=== PATIENT | male | born 1945 | race Caucasian/White ===

== ENCOUNTER 2022-04-22 13:42 | Inpatient (IN) ==
--- NOTE | 2022-04-22 14:06 | Emergency Department Note ---
Impression & Plan Blood bacterial culture positive, Influenza A ED Provider Note NAME: SUE HIDALGO AGE: 76 SEX: M : 1945 ARRIVES VIA: Walk-In INFORMANT: Patient, ED PROVIDER(S): Carlo Last MD Chief Complaint: Referral back to the emergency department for positive blood culture HPI: Patient presents due to concern for recent positive blood cultures for gram-negative rods. The patient was seen on Monday and diagnosed with the flu. Patient has taken 2 doses of Tamiflu. The patient denies any chest pains or shortness of breath but does have associated weakness. Patient did not receive his seasonal flu shot this year. Patient denies any abdominal pain nausea or vomiting. Patient denies any urinary symptoms. Patient has had an occasionally productive cough. Former smoker low smoking 35 years ago. Patient has not had any fevers or chills. ROS: See HPI for pertinent positives and negatives. A total of 10 systems were reviewed and otherwise negative. Past medical history: See below Surgical history: See below Social history: See below Physical Exam: GENERAL: NAD, wearing a mask, non-toxic. Wearing glasses. EYE EXAM: Normal conjunctiva. PERRL, no anisocoria and EOM's grossly intact w/o pain. NECK: Supple, no nuchal rigidity, no adenopathy, non-tender. No signs of meningismus. FROM of the neck with good chin to chest and neck extension. No stridor. LUNGS: Sonorous breath sounds right chest. Normal chest wall mechanics. HEART: NSR, no MRG. ABDOMEN: Abdomen soft, non-tender, normo-active bowel sounds, no masses, no rebound or guarding. BACK: No CVA TTP. SKIN: No rashes and no bruising. UPPER EXTREMITIES: Upper extremities are grossly normal. LOWER EXTREMITIES: Grossly normal, no edema. NEURO EXAM: A&O x3, cranial nerves II-XII grossly intact, normal speech, moves all 4 extremities. Differential diagnoses: Infection, dehydration, metabolic abnormality, hypo/hyperglycemia, electrolyte disturbance, anemia, hypoxia, cardiac sources, intracerebral event, toxicologic, neurologic, as well as other pathologies. Course: Patient was seen and evaluated the bedside. Full history physical exam was performed. EKG interpreted by nv Sinus, rate 63, normal intervals left axis deviation no ST elevations. Imaging Studies: See Below Cardiac monitoring: An order was placed for continuous cardiac monitoring. The monitor shows a rate of 67 with sinus rhythm. MDM: Patient was seen due to concern for weakness with recent positive blood cultures. Blood work is obtained along with repeat cultures and a lactate IV fluids were ordered along with a COVID test and the patient was ordered empiric cefepime. Patient does have leukopenia with a normal H&H and platelet count. Kidney function is unremarkable with normal electrolytes. Urinalysis is negative. COVID-negative. I did speak the on-call hospitalist Re Laura PA-C and the patient was admitted by Dr. Meza. Past Med/Surg History Medical History BPH (benign prostatic hyperplasia) Diabetes mellitus, type II Dyslipidemia Hypertension Urinary retention Surgical History History of arthroplasty of left knee History of colonoscopy History of cystoscopy Family History Father Cancer brain tumor Brother Cancer liver cancer Social History Smoking Status: Never smoker Hx Alcohol Use: No Hx Substance Use: No Preferred Language: [place] Island[place] Current Living Situation: Family Feels Safe at Home: Yes Allergies Allergies Allergy/AdvReac Type Severity Reaction Status Date / Time No Known Allergies Allergy Verified 04/20/22 21:20 Home Meds Home Medications Medication Instructions Recorded Confirmed finasteride 5 mg tablet 5 mg PO DAILY 04/20/22 04/22/22 levothyroxine 75 mcg tablet 75 mcg PO QAM 04/20/22 04/22/22 lisinopril 5 mg tablet 5 mg PO DAILY 04/20/22 04/22/22 metoprolol succinate 50 mg 50 mg PO DAILY 04/20/22 04/22/22 tablet,extended release 24 hr rosuvastatin 10 mg tablet 10 mg PO DAILY 04/20/22 04/22/22 tamsulosin 0.4 mg capsule 0.8 mg PO DAILY 04/20/22 04/22/22 acetaminophen 500 mg tablet 1,000 mg PO Q6H PRN Fever Or Pain 04/22/22 04/22/22 (Tylenol Extra Strength) ascorbic acid (vitamin C) 1,000 mg 1 g PO DAILY 04/22/22 04/22/22 tablet (Vitamin C) aspirin 81 mg tablet,delayed 81 mg PO HS 04/22/22 04/22/22 release Previous Rx's Medication Instructions Recorded oseltamivir 75 mg capsule (Tamiflu) 75 mg PO BID 5 days #10 caps 04/20/22 Results & Data (ED) Vital Signs Vital Signs - 24 hr 04/22/22 13:46 Temperature 36.6 C Temperature Source Oral Pulse Rate 64 Respiratory Rate 19 Blood Pressure 183/80 H Blood Pressure Mean 114 Pulse Oximetry 97 Oxygen Delivery Method Room Air Sepsis Recent Fever Within 48 Hours No Sepsis New/Unexplained Change in Mental Status N/A Sepsis Action Taken by Nursing No Action Required Home Medications Current Medication List: was personally reviewed by me Laboratory Data Attestation: I reviewed the patient's lab results. Result diagrams: 04/22/22 15:11 04/22/22 15:11 Lab Results 04/22/22 04/22/22 04/22/22 Range/Units 15:11 15:11 15:11 WBC 4.05 L (4.8-10.8) K/ul RBC 4.86 (4.63-6.08) M/uL Hgb 15.3 (14.0-18.0) g/dl Hct 46.3 (40.1-51.0) % MCV 95.3 (80.0-100.0) fL MCH 31.5 (25.0-34.0) pg MCHC 33.0 (32.0-36.0) g/dL RDW Std Deviation 47.4 H (36.4-46.3) fL RDW Coeff of Daniel 13.4 (11.5-14.5) % Plt Count 157 (130-400) K/uL MPV 10.9 (9.4-12.4) fL Immature Gran % (Auto) 0.5 % Neut % (Auto) 52.4 % Lymph % (Auto) 33.3 % Gila % (Auto) 10.1 % Eos % (Auto) 3.0 % Baso % (Auto) 0.7 % Neut # (Auto) 2.12 (1.4-6.5) K/uL Lymph # (Auto) 1.35 (1.2-3.4) K/uL Gila # (Auto) 0.41 (0.24-0.82) K/uL Eos # (Auto) 0.12 (0-0.50) K/uL Baso # (Auto) 0.03 (0-0.2) K/uL Immature Gran # (Auto) 0.02 (0.00-0.02) K/uL Sodium 137 (136-145) mmol/L Potassium 4.1 (3.5-5.1) mmol/L Chloride 103 (98-107) mmol/L Carbon Dioxide 27 (21-32) mmol/L Anion Gap 7 (3-11) BUN 17 (6-23) mg/dl Creatinine 0.90 (0.6-1.4) mg/dl Est Cr Clr Drug Dosing 79.1 ml/min Est GFR ( Amer) 94.5 ml/min Est GFR (Non-Af Amer) 81.5 ml/min BUN/Creatinine Ratio 18.9 (10-20) Glucose 95 (70-99(Fasting)) mg/dl Lactate 0.8 (0.4-2.0) mmol/L Calcium 9.5 (8.5-10.1) mg/dl Magnesium 2.2 (1.7-2.4) mg/dl Total Bilirubin 0.5 (0.2-1.0) mg/dl Direct Bilirubin 0.1 (0-0.2) mg/dl AST 26 (13-39) U/L ALT 17 (7-52) U/L Alkaline Phosphatase 44 (34-104) U/L Troponin I High Sens 11.2 (0-20) pg/ml Total Protein 7.4 (6.0-8.3) gm/dl Albumin 4.3 (3.4-5.0) gm/dl Procalcitonin (0-0.5) ng/ml 04/22/22 Range/Units 15:11 WBC (4.8-10.8) K/ul RBC (4.63-6.08) M/uL Hgb (14.0-18.0) g/dl Hct (40.1-51.0) % MCV (80.0-100.0) fL MCH (25.0-34.0) pg MCHC (32.0-36.0) g/dL RDW Std Deviation (36.4-46.3) fL RDW Coeff of Daniel (11.5-14.5) % Plt Count (130-400) K/uL MPV (9.4-12.4) fL Immature Gran % (Auto) % Neut % (Auto) % Lymph % (Auto) % Gila % (Auto) % Eos % (Auto) % Baso % (Auto) % Neut # (Auto) (1.4-6.5) K/uL Lymph # (Auto) (1.2-3.4) K/uL Gila # (Auto) (0.24-0.82) K/uL Eos # (Auto) (0-0.50) K/uL Baso # (Auto) (0-0.2) K/uL Immature Gran # (Auto) (0.00-0.02) K/uL Sodium (136-145) mmol/L Potassium (3.5-5.1) mmol/L Chloride (98-107) mmol/L Carbon Dioxide (21-32) mmol/L Anion Gap (3-11) BUN (6-23) mg/dl Creatinine (0.6-1.4) mg/dl Est Cr Clr Drug Dosing ml/min Est GFR ( Amer) ml/min Est GFR (Non-Af Amer) ml/min BUN/Creatinine Ratio (10-20) Glucose (70-99(Fasting)) mg/dl Lactate (0.4-2.0) mmol/L Calcium (8.5-10.1) mg/dl Magnesium (1.7-2.4) mg/dl Total Bilirubin (0.2-1.0) mg/dl Direct Bilirubin (0-0.2) mg/dl AST (13-39) U/L ALT (7-52) U/L Alkaline Phosphatase (34-104) U/L Troponin I High Sens (0-20) pg/ml Total Protein (6.0-8.3) gm/dl Albumin (3.4-5.0) gm/dl Procalcitonin < 0.05 (0-0.5) ng/ml Administered Medications Discontinued Medications Sodium Chloride (Nss 1000ml) 1,000 mls @ 999 mls/hr IV .[id number] LOGAN Stop: 04/22/22 15:30 Last Infusion: 04/22/22 16:27 Dose: 0 mls/hr Documented By: Admin: 04/22/22 15:24 Dose: 999 mls/hr Documented By: RODNEY Cefepime HCl (Maxipime) 2,000 mg in 20 mls @ 5 mls/min IV NOW STA; Protocol Stop: 04/22/22 14:26 Last Admin: 04/22/22 15:23 Dose: 5 mls/min Documented By: RODNEY Lisinopril (Lisinopril 5 Mg Tab) 5 mg PO NOW ONE Stop: 04/22/22 15:50 Last Admin: 04/22/22 16:19 Dose: 5 mg Documented By: RODNEY Imaging Data Radiologist's Impression: Chest X-Ray 04/22/22 14:23 XR chest 1V portable CLINICAL HISTORY: Sepsis TECHNIQUE: Single frontal radiograph of the chest was obtained. Comparison: Comparison is made to chest radiograph 04/20/2022 FINDINGS: No lines and tubes are seen. The cardiomediastinal silhouette is normal. The lungs are clear. No evidence of pleural effusion or pneumothorax. IMPRESSION: No acute chest disease. ACT 112: Negative or not required by law. Electronically signed by: Reece Mistry M.D. 04/22/2022 2:42 PM Discharge Plan Visit Data Chief Complaint: Abnormal Labs/Diagnostic Testing Stated Complaint: CALLED BY ER DEPT TO COME BACK IN ED Provider: Carlo Last Discharge Problem: Blood bacterial culture positive, Influenza A Patient Disposition: Admitted As Inpatient Discharge Instructions Interventions: ED Discharge Assessment Last Done: 04/22/22 17:20
[2022-04-22] MEDS ORDERED: CEFEPIME 2,000 MG/20 ML VIAL IV STA (14:23)
[2022-04-22] MEDS ORDERED: SODIUM CHLORIDE 0.9% 1000ML 1,000 ML IV SCH (14:30)
--- NOTE | 2022-04-22 14:43 | XRay Report ---
XR chest 1V portable CLINICAL HISTORY: Sepsis TECHNIQUE: Single frontal radiograph of the chest was obtained. Comparison: Comparison is made to chest radiograph 04/20/2022 FINDINGS: No lines and tubes are seen. The cardiomediastinal silhouette is normal. The lungs are clear. No evid ence of pleural effusion or pneumothorax. IMPRESSION: No acute chest disease. ACT 112: Negative or not required by law. Electronically signed by: Reece Mistry M.D. 04/22/2022 2:42 PM
--- NOTE | 2022-04-22 15:09 | History & Physical Report ---
Date of Service April 22, 2022 Assessment & Plan (1) Bacteremia: Plan: Patient is 76-year-old male with PMH diet controlled DM II, HTN, dyslipidemia, BPH, urinary retention, hypothyroidism presented to ER for abnormal labs: Positive blood cultures. Patient was seen on 04/20/22 [facility] for fever, chills, weakness, had positive influenza A PCR. Returns to ER today as 1/4 blood cultures positive for gram-negative bacilli. Denies fever today. 04/05/2022 had outpatient cystoscopy. Today afebrile in ER, hypertensive, otherwise vital stable. WBC: 4. Normal lactate CXR: No acute findings UA pending In ER given IVF, cefepime Repeat blood cultures pending Continue cefepime CBC, BMP in a.m. (2) Influenza A: Plan: Positive influenza A PCR on 04/20/2022 Has had 2 doses of Tamiflu Continue Tamiflu Droplet precautions (3) Hypertension: Plan: Continue lisinopril, metoprolol succinate (4) Diabetes mellitus, type II: Plan: Diet controlled A1c: 5.9 on 01/05/2022 Patient takes homeopathic supplement Novolog sliding correction scale per protocol (5) BPH (benign prostatic hyperplasia): Plan: Continue tamsulosin, finasteride (6) Dyslipidemia: Plan: Continue rosuvastatin DVT Prophylaxis Lovenox SQ DNR/DNI as per discussion with pt Follows with Dr Mora in [place] for routine care Pt was seen and care coordinated with Dr Meza. See addendum History of Present Illness Chief Complaint: abnormal labs Primary Care Provider: Sachin Junior DO Patient is 76-year-old male with PMH diet controlled DM II, HTN, dyslipidemia, BPH, urinary retention, hypothyroidism presented to ER for abnormal labs: Positive blood cultures. Patient was seen on 04/20/22 [facility] for fever, chills, weakness, had positive influenza A PCR. Was given IVF, cefepime, Tamif audra and discharged home. Returns to ER today as 1/4 blood cultures positive for gram-negative bacilli. Patient states had fever 2 days ago, none since. Mild cough productive clear sputum. Denies chest pain or SOB. Took 2nd dose of Tamiflu today as pharmacy was closed yesterday and he was unable to fill the prescription. Outpatient cystoscopy on 04/05/22 and was given Bactrim perioperatively. Patient denies dysuria, urinary frequency, hematuria, urinary retention. Denies diaphoresis, N/V/D/C, HOFFMAN, dizziness, syncope, vision changes, neck pain, palpitations, sore throat, choking, otalgia, rhinorrhea, abdominal pain, paresthesias, extremity weakness, extremity edema, rashes. Allergies Allergy/AdvReac Type Severity Reaction Status Date / Time No Known Allergies Allergy Verified 04/20/22 21:20 Home Medications Medication Instructions Recorded Confirmed Type finasteride 5 mg tablet 5 mg PO DAILY 04/20/22 04/22/22 History levothyroxine 75 mcg tablet 75 mcg PO QAM 04/20/22 04/22/22 History lisinopril 5 mg tablet 5 mg PO DAILY 04/20/22 04/22/22 History metoprolol succinate 50 mg 50 mg PO DAILY 04/20/22 04/22/22 History tablet,extended release 24 hr oseltamivir 75 mg capsule (Tamiflu) 75 mg PO BID 5 days #10 caps 04/20/22 04/22/22 Rx rosuvastatin 10 mg tablet 10 mg PO DAILY 04/20/22 04/22/22 History tamsulosin 0.4 mg capsule 0.8 mg PO DAILY 04/20/22 04/22/22 History acetaminophen 500 mg tablet 1,000 mg PO Q6H PRN Fever Or Pain 04/22/22 04/22/22 History (Tylenol Extra Strength) ascorbic acid (vitamin C) 1,000 mg 1 g PO DAILY 04/22/22 04/22/22 History tablet (Vitamin C) aspirin 81 mg tablet,delayed 81 mg PO HS 04/22/22 04/22/22 History release Past Med/Surg History Medical History BPH (benign prostatic hyperplasia) Diabetes mellitus, type II Dyslipidemia Hypertension Urinary retention Surgical History History of arthroplasty of left knee History of colonoscopy History of cystoscopy Family History Father Cancer brain tumor Brother Cancer liver cancer Social History (Reviewed 11/25/22 @ 15:55 by DIANE Gaines Smoking Status: Never smoker Hx Alcohol Use: No Hx Substance Use: No Preferred Language: [place] Citizen Current Living Situation: Family Feels Safe at Home: Yes Review of Systems Review of Systems: All systems reviewed & are unremarkable except as noted in HPI & below Physical Exam Physical Exam: General: no distress, obese Head: normocephalic, atraumatic Eyes: conjunctiva non-injected, anicteric ENT: normal inspection external ears, nose, mucous membranes moist Neck: supple, trachea midline Lungs: clear, no respiratory distress, no wheezing/rhonchi/rales CV: RRR, no murmur, trace pretibial edema Abd: normal BS, soft, non-tender Ext: no cyanosis, no calf tenderness Neuro: A&O x 3, no focal deficits noted, normal affect Skin: warm, dry Results & Data Results & Data ([facility]) Vital Signs (Past 12 Hours) Vital Signs Temp Pulse Resp BP Pulse Ox O2 Del Method 04/22/22 13:46 36.6 C 64 19 183/80 H 97 Room Air Laboratory Results Short CBC 04/22/22 Range/Units 15:11 WBC 4.05 L (4.8-10.8) K/ul Hgb 15.3 (14.0-18.0) g/dl Hct 46.3 (40.1-51.0) % Plt Count 157 (130-400) K/uL BMP 04/22/22 15:11 Sodium 137 Potassium 4.1 Chloride 103 Carbon Dioxide 27 BUN 17 Creatinine 0.90 Glucose 95 Calcium 9.5 Liver Function 04/22/22 Range/Units 15:11 Total Bilirubin 0.5 (0.2-1.0) mg/dl Direct Bilirubin 0.1 (0-0.2) mg/dl AST 26 (13-39) U/L ALT 17 (7-52) U/L Alkaline Phosphatase 44 (34-104) U/L Albumin 4.3 (3.4-5.0) gm/dl Diagnostic Findings Chest X-Ray 04/22/22 14:23 XR chest 1V portable CLINICAL HISTORY: Sepsis TECHNIQUE: Single frontal radiograph of the chest was obtained. Comparison: Comparison is made to chest radiograph 04/20/2022 FINDINGS: No lines and tubes are seen. The cardiomediastinal silhouette is normal. The lungs are clear. No evidence of pleural effusion or pneumothorax. IMPRESSION: No acute chest disease. ACT 112: Negative or not required by law. Electronically signed by: Reece Mistry M.D. 04/22/2022 2:42 PM Supervising Physician Co-Signing Physician Notes 76 yo M w/ PMH of diet controlled DM II, HTN, HLD, Urinary retention, hypothyroidism presented to ED 04/20 w/ flu when tamiflu was started and blood culture was drawn which came back positive for GNB and hence patient was called to the ED 04/22. Pt wo complains of fever, chills, acute changes in bowel or bladder habits. Pt reports having fever on 04/20, also reports some cough w/ clear sputum. No heart valve issues, has knee replacement x Lt. Of note, patient reports having cystoscopy 3 weeks ago. Pt given cefepime in the ED, will continue w/ 2g q12h, bl Cx today. Pt not in sepsis. Labs and imagings reviewed. Will continue w/ OP tamiflu course for flu positive on 04/20. Isolation. GENERAL: Alert and oriented x3. NAD, on RA. Class II obese. HEENT: No pallor, no icterus. Pupils equal, round and reactive to light. Oral mucosa moist. NECK: No JVD, no neck masses. HEART: S1 and S2 heard. Regular rate and rhythm. No murmur, no gallop. RESPIRATORY SYSTEM: Normal AP diameter. No accessory muscle use. No wheezing, no crackles. ABDOMEN: Soft, bowel sounds present, nontender, no distention. CENTRAL NERVOUS SYSTEM: No facial droop. Speech is clear. Obeys simple commands. Moves extremities. EXTREMITIES: trace ble edema, no erythema seen. I have seen and examined the patient and have discussed the case with the provider above. I agree with the assessment and plan as stated.
[2022-04-22 15:25] LABS: Basophils # (auto) 0.03 K/uL (0-0.2); Basophils % (auto) 0.7 %; Eosinophils # (auto) 0.12 K/uL (0-0.50); Hematocrit (blood only) 46.3 % (40.1-51.0); Hemoglobin 15.3 g/dl (14.0-18.0); Immature Granulocytes # (auto) 0.02 K/uL (0.00-0.02); Immature Granulocytes % (auto) 0.5 %; Lymphocytes # (auto) 1.35 K/uL (1.2-3.4); Lymphocytes % (auto) 33.3 %; Mean Corpuscular Hemoglobin 31.5 pg (25.0-34.0); Mean Corpuscular Volume 95.3 fL (80.0-100.0); Mean Platelet Volume 10.9 fL (9.4-12.4); Monocytes # (auto) 0.41 K/uL (0.24-0.82); Monocytes % (auto) 10.1 %; Neutrophils # (auto) 2.12 K/uL (1.4-6.5); Neutrophils % (auto) 52.4 %; Platelet Count 157 K/uL (130-400); RDW Coefficient of Variation 13.4 % (11.5-14.5); RDW Standard Deviation 47.4 fL (36.4-46.3); Red Blood Count 4.86 M/uL (4.63-6.08); White Blood Count 4.05 K/ul (4.8-10.8)
--- NOTE | 2022-04-22 15:38 | Electrocardiogram Report ---
Test Reason : Blood Pressure : / mmHG Vent. Rate : 063 BPM Atrial Rate : 063 BPM P-R Int : 164 ms QRS Dur : 106 ms QT Int : 434 ms P-R-T Axes : 079 -40 034 degrees QTc Int : 444 ms Poor data quality, interpretation may be adversely affected Sinus rhythm with Premature atrial complexes Left anterior fascicular block Incomplete right bundle branch block Abnormal ECG When compared with ECG of 20-APR-2022 20:51, No significant change was found Confirmed by Jayson Zabala ([id number]) on 04/22/2022 3:37:50 PM Referred By: REFERRED SELF Confirmed By:Jayson Zabala
[2022-04-22 15:45] LABS: Albumin Level 4.3 gm/dl (3.4-5.0); BUN Creatinine Ratio 18.9 (10-20); Bilirubin Direct 0.1 mg/dl (0-0.2); Bilirubin,Total 0.5 mg/dl (0.2-1.0); Calcium 9.5 mg/dl (8.5-10.1); Creatinine Clr Calc Pharmacy 79.1 ml/min; Est GFR (African American) 94.5 ml/min; Est GFR (Non-African American) 81.5 ml/min; Magnesium 2.2 mg/dl (1.7-2.4); Potassium 4.1 mmol/L (3.5-5.1); Total Protein 7.4 gm/dl (6.0-8.3)
[2022-04-22] MEDS ORDERED: lisinopril 5 MG TAB PO ONE (15:49)
[2022-04-22 15:51] LABS: Troponin I High Sensitivity 11.2 pg/ml (0-20)
[2022-04-22 17:02] LABS: Appearance Urine Clear (Clear); Bilirubin Urine Negative (Negative); Blood Urine Negative (Negative); Color Urine Yellow; Glucose Urine UA Negative (Negative); Ketones Urine Negative (Negative); Leukocyte Esterase Urine Negative (Negative); Nitrite Urine Negative (Negative); Protein Urine Negative (Negative); Specific Gravity Urine 1.018 (1.000-1.030); Urobilinogen Urine Negative (Negative)
[2022-04-22] MEDS ORDERED: POLYETHYLENE (MIRALAX) 17 GM PACK PO PRN (18:34)
[2022-04-22] MEDS ORDERED: ACETAMINOPHEN 325 MG TAB PO PRN (18:34)
[2022-04-22] MEDS ORDERED: DEXTROSE 50% 50 ML SYRINGE IV PRN (18:34)
[2022-04-22] MEDS ORDERED: ONDANSETRON INJ 2 MG/ML 2 ML VIAL IV PRN (18:34)
[2022-04-22] MEDS ORDERED: GLUCOSE 40% GEL 15 GM TUBE PO PRN (18:34)
[2022-04-22] MEDS ORDERED: CARBOHYDRATES FOR HYPOGLYCEMIA PO PRN (18:34)
[2022-04-22] MEDS ORDERED: GLUCOSE 10 TAB/TUBE PO PRN (18:34)
[2022-04-22] MEDS ORDERED: GLUCAGON FOR INJ 1 MG VIAL SQ PRN (18:34)
[2022-04-22] MEDS: INSULIN ASPART PER UNIT SC SCH ×2 (20:44→21:40)
[2022-04-22] MEDS: ENOXAPARIN INJ 40 MG/0.4 ML SYR SQ SCH (20:44)
[2022-04-22] MEDS: OSELTAMIVIR PHOSPHATE 75 MG CAP PO SCH (20:45)
[2022-04-22] MEDS: ASPIRIN 81 MG ECTAB PO SCH (20:45)
[2022-04-22] MEDS: CEFEPIME 2,000 MG in SYRINGE 0 ML IV SCH (23:46)
[2022-04-23] MEDS: LEVOTHYROXINE SODIUM 75 MCG TABLET PO SCH (05:59)
[2022-04-23 06:47] LABS: Hematocrit (blood only) 43.3 % (40.1-51.0); Hemoglobin 14.3 g/dl (14.0-18.0); Mean Corpuscular Volume 93.7 fL (80.0-100.0); Mean Platelet Volume 10.4 fL (9.4-12.4); Platelet Count 157 K/uL (130-400); RDW Coefficient of Variation 13.3 % (11.5-14.5); RDW Standard Deviation 45.6 fL (36.4-46.3); Red Blood Count 4.62 M/uL (4.63-6.08); White Blood Count 4.84 K/ul (4.8-10.8)
[2022-04-23 07:02] LABS: BUN Creatinine Ratio 16.1 (10-20); Calcium 9.3 mg/dl (8.5-10.1); Creatinine Clr Calc Pharmacy 75.8 ml/min; Est GFR (African American) 90.8 ml/min; Est GFR (Non-African American) 78.4 ml/min; Potassium 4.3 mmol/L (3.5-5.1)
[2022-04-23] MEDS: CEFEPIME 2,000 MG in SYRINGE 0 ML IV SCH ×3 (08:02→23:11)
[2022-04-23] MEDS: TAMSULOSIN HCL 0.4 MG CAP PO SCH (08:02)
[2022-04-23] MEDS: ROSUVASTATIN CALCIUM 10 MG TAB PO SCH (08:03)
[2022-04-23] MEDS: METOPROLOL SUCC 50MG EXT REL TAB PO SCH (08:03)
[2022-04-23] MEDS: lisinopril 5 MG TAB PO SCH (08:03)
[2022-04-23] MEDS: FINASTERIDE 5 MG TAB PO SCH (08:05)
[2022-04-23] MEDS: OSELTAMIVIR PHOSPHATE 75 MG CAP PO SCH ×2 (08:06→20:00)
[2022-04-23] MEDS: INSULIN ASPART PER UNIT SC SCH ×4 (08:06→21:07)
[2022-04-23] MEDS ORDERED: OPTIRAY 350 100ml IV ONE (11:07)
--- NOTE | 2022-04-23 11:37 | CT Scan Report ---
CT SCAN OF THE ABDOMEN AND PELVIS WITH IV CONTRAST CLINICAL HISTORY: Escherichia coli bacteremia. COMPARISON STUDY: No priors. TECHNIQUE: Following the IV administration of 85 cc of Optiray 350, CT scan of the abdomen and pelvi s is performed from the lung bases to the proximal femora. Images are reviewed in the axial, sagittal , and coronal planes. IV contrast was administered without complication. A dose lowering technique wa s utilized adhering to the principles of ALARA. CT DOSE: 1126.70 mGy.cm FINDINGS: Lung bases: The heart is normal in size and without pericardial effusion. There are coronary artery c alcifications. Emphysematous changes noted at the lung bases. There are small pleural effusions with dependent atelectasis. Liver: The contrast-enhanced liver is normal in size, contour, and attenuation. There is no intrahepa tic biliary ductal dilatation. The hepatic veins and portal veins are patent. Gallbladder: Unremarkable. Spleen: Normal in size and attenuation. Pancreas: Unremarkable. Adrenal glands: Unremarkable. Kidneys: The contrast enhanced kidneys are normal in size and without hydronephrosis. The kidneys enh ance symmetrically. Bilateral renal cysts measure up to 2.7 cm. An indeterminant 1.1 cm lesion arises in the lower pole of the left kidney on image #[id number]. Abdominal vasculature: The abdominal aorta is normal in course and caliber noting advanced atheroscle rotic calcification. Bowel: There is no bowel obstruction. The appendix is well-visualized and normal. Peritoneum: There is no intraperitoneal free air or abdominal ascites. There is a small fat-containin g umbilical hernia. Lymphadenopathy: None. Pelvic viscera: The prostate gland is enlarged and heterogeneous noting median lobe hypertrophy. The bladder wall appears thickened/trabeculated indicating chronic outlet obstruction. Skeletal structures: The skeletal structures are osteopenic. There is mild lumbosacral spondylosis. N o lytic or blastic lesions are seen. IMPRESSION: 1. There are no acute infectious or inflammatory findings in the abdomen or pelvis. 2. Emphysema. 3. An indeterminate 1.1 cm lesion arising from the lower pole of left kidney does not meet criteria f or simple cyst. This may represent a complex cyst, and a 3-6 month follow-up with a contrast-enhanced renal protocol CT or MRI is recommend for reassessment. 4. Small pleural effusions. 5. Additional findings as above. ACT 112: Negative or not required by law. Electronically signed by: Salas Urbina M.D. 04/23/2022 11:35 AM
--- NOTE | 2022-04-23 11:46 | Hospitalist Progress Note ---
Date of Service April 23, 2022 Assessment & Plan (1) Bacteremia: Plan: Patient is 76-year-old male with PMH diet controlled DM II, HTN, dyslipidemia, BPH, urinary retention, hypothyroidism presented to ER for abnormal labs: Positive blood cultures. Patient was seen on 04/20/22 [facility] ER for fever, chills, weakness, had positive influenza A PCR. Returns to ER today as 06/01 blood cultures positive for gram-negative bacilli. 04/05/2022 had outpatient cystoscopy. Blood culture on positive for gram-negative bacilli Repeat blood culture pending CT abdomen and pelvis did not show any sign of abscess/pyelonephritis. An indeterminant 1.1 cm lesion found in the lower pole of left kidney; will need 3 to 6-month follow-up. Plan; Continue on cefepime for now; follow-up on final culture results and repeat culture. Will need total 14 days of antibiotic; will switch to oral after identification/culture sensitivities done. (2) Influenza A: Plan: Positive influenza A PCR on 04/20/2022 Has had 2 doses of Tamiflu Continue Tamiflu for total of 2 days Droplet precautions (3) Hypertension: Plan: Continue lisinopril, metoprolol succinate (4) Diabetes mellitus, type II: Plan: Diet controlled A1c: 5.9 on 01/05/2022 Patient takes homeopathic supplement Novolog sliding correction scale per protocol (5) BPH (benign prostatic hyperplasia): Plan: Continue tamsulosin, finasteride (6) Dyslipidemia: Plan: Continue rosuvastatin DVT Prophylaxis Lovenox SQ DNR/DNI as per discussion with pt Follows with Dr Mora in [place], [place] for routine care Admission and Anticipated Discharge Date Admission Date: April 22, 2022 Subjective Patient seen and examined at bedside. He is comfortably sitting up at the side of the bed. He denies any fever, chills, chest pain, cough, abdomen pain or urinary symptoms. Review of Systems Review of Systems: All systems reviewed & are unremarkable except as noted in Subjective Physical Exam Physical Exam: Constitutional: WD/WN, vitals as above, NAD, sitting up in bed, pleasant, conversing easily Respiratory: normal respiratory effort, lungs clear to auscultation, no wheeze, rales, rhonchi. Normal insp/exp effort, no accessory muscle use Cardiovascular: RRR, no murmur, no edema Vessels: no JVD or carotid bruit Chest: normal inspection of chest Abdomen: normal bowel sounds, soft, nontender, no hepatosplenomegaly Musculoskeletal: no cyanosis or clubbing, extremities motor strength 5/5 Skin: no rashes, warm and dry normal turgor Neurologic: PERRL, EOMI, accommodation nl, no face palsy, no dysarthria CN's II- XI intact bilaterally and moves all extremities Psychiatric: A+Ox3, euthymic affect Lymphatic: no cervical or axillary lymphadenopathy : deferred Results & Data Results & Data ([facility]) Vital Signs (Past 12 Hours) Vital Signs Temp Pulse Pulse Resp BP Pulse Ox O2 Del Method 04/23/22 07:52 36.7 C 58 L 18 162/74 H 95 Room Air 04/23/22 07:41 59 L 04/23/22 03:25 36.6 C 56 L 18 128/77 94 CPAP 04/23/22 02:27 62 22 94 04/23/22 00:03 60 21 94 04/22/22 23:55 36.9 C 60 18 125/73 94 Room Air Laboratory Results Laboratory Results WBC 4.84 K/ul (4.8-10.8) 04/23/22 06:13 RBC 4.62 M/uL (4.63-6.08) L 04/23/22 06:13 Hgb 14.3 g/dl (14.0-18.0) 04/23/22 06:13 Hct 43.3 % (40.1-51.0) 04/23/22 06:13 MCV 93.7 fL (80.0-100.0) 04/23/22 06:13 MCH 31.0 pg (25.0-34.0) 04/23/22 06:13 MCHC 33.0 g/dL (32.0-36.0) 04/23/22 06:13 RDW Std Deviation 45.6 fL (36.4-46.3) 04/23/22 06:13 RDW Coeff of Daniel 13.3 % (11.5-14.5) 04/23/22 06:13 Plt Count 157 K/uL (130-400) 04/23/22 06:13 MPV 10.4 fL (9.4-12.4) 04/23/22 06:13 Immature Gran % (Auto) 0.5 % 04/22/22 15:11 Neut % (Auto) 52.4 % 04/22/22 15:11 Lymph % (Auto) 33.3 % 04/22/22 15:11 [place] % (Auto) 10.1 % 04/22/22 15:11 Eos % (Auto) 3.0 % 04/22/22 15:11 Baso % (Auto) 0.7 % 04/22/22 15:11 Neut # (Auto) 2.12 K/uL (1.4-6.5) 04/22/22 15:11 Lymph # (Auto) 1.35 K/uL (1.2-3.4) 04/22/22 15:11 [place] # (Auto) 0.41 K/uL (0.24-0.82) 04/22/22 15:11 Eos # (Auto) 0.12 K/uL (0-0.50) 04/22/22 15:11 Baso # (Auto) 0.03 K/uL (0-0.2) 04/22/22 15:11 Immature Gran # (Auto) 0.02 K/uL (0.00-0.02) 04/22/22 15:11 Sodium 139 mmol/L (136-145) 04/23/22 06:13 Potassium 4.3 mmol/L (3.5-5.1) 04/23/22 06:13 Chloride 105 mmol/L (98-107) 04/23/22 06:13 Carbon Dioxide 27 mmol/L (21-32) 04/23/22 06:13 Anion Gap 7 (3-11) 04/23/22 06:13 BUN 15 mg/dl (6-23) 04/23/22 06:13 Creatinine 0.93 mg/dl (0.6-1.4) 04/23/22 06:13 Est Cr Clr Drug Dosing 75.8 ml/min 04/23/22 06:13 Est GFR ( Amer) 90.8 ml/min 04/23/22 06:13 Est GFR (Non-Af Amer) 78.4 ml/min 04/23/22 06:13 BUN/Creatinine Ratio 16.1 (10-20) 04/23/22 06:13 Glucose 92 mg/dl (70-99(Fasting)) 04/23/22 06:13 POC Glucose 94 mg/dl (70-99) 04/23/22 11:39 Lactate 0.8 mmol/L (0.4-2.0) 04/22/22 15:11 Calcium 9.3 mg/dl (8.5-10.1) 04/23/22 06:13 Magnesium 2.2 mg/dl (1.7-2.4) 04/22/22 15:11 Total Bilirubin 0.5 mg/dl (0.2-1.0) 04/22/22 15:11 Direct Bilirubin 0.1 mg/dl (0-0.2) 04/22/22 15:11 AST 26 U/L (13-39) 04/22/22 15:11 ALT 17 U/L (7-52) 04/22/22 15:11 Alkaline Phosphatase 44 U/L (34-104) 04/22/22 15:11 Troponin I High Sens 11.2 pg/ml (0-20) 04/22/22 15:11 Total Protein 7.4 gm/dl (6.0-8.3) 04/22/22 15:11 Albumin 4.3 gm/dl (3.4-5.0) 04/22/22 15:11 Procalcitonin < 0.05 ng/ml (0-0.5) 04/22/22 15:11 Urine Color Yellow 04/22/22 15:25 Urine Appearance Clear (Clear) 04/22/22 15:25 Urine pH 5.0 (4.5-7.5) 04/22/22 15:25 Ur Specific [place] 1.018 (1.000-1.030) 04/22/22 15:25 Urine Protein Negative (Negative) 04/22/22 15:25 Urine Glucose (UA) Negative (Negative) 04/22/22 15:25 Urine Ketones Negative (Negative) 04/22/22 15:25 Urine Blood Negative (Negative) 04/22/22 15:25 Urine Nitrite Negative (Negative) 04/22/22 15:25 Urine Bilirubin Negative (Negative) 04/22/22 15:25 Urine Urobilinogen Negative (Negative) 04/22/22 15:25 Ur Leukocyte Esterase Negative (Negative) 04/22/22 15:25 SARS-CoV-2, RNA, NAAT NEGATIVE (NEGATIVE) 04/22/22 15:24 Impressions Chest X-Ray 04/22/22 14:23 XR chest 1V portable CLINICAL HISTORY: Sepsis TECHNIQUE: Single frontal radiograph of the chest was obtained. Comparison: Comparison is made to chest radiograph 04/20/2022 FINDINGS: No lines and tubes are seen. The cardiomediastinal silhouette is normal. The lungs are clear. No evidence of pleural effusion or pneumothorax. IMPRESSION: No acute chest disease. ACT 112: Negative or not required by law. Electronically signed by: Reece Mistry M.D. 04/22/2022 2:42 PM Abdomen/Pelvis CT 04/23/22 09:42 CT SCAN OF THE ABDOMEN AND PELVIS WITH IV CONTRAST CLINICAL HISTORY: Escherichia coli bacteremia. COMPARISON STUDY: No priors. TECHNIQUE: Following the IV administration of 85 cc of Optiray 350, CT scan of the abdomen and pelvis is performed from the lung bases to the proximal femora. Images are reviewed in the axial, sagittal, and coronal planes. IV contrast was administered without complication. A dose lowering technique was utilized adhering to the principles of ALARA. CT DOSE: 1126.70 mGy.cm FINDINGS: Lung bases: The heart is normal in size and without pericardial effusion. There are coronary artery calcifications. Emphysematous changes noted at the lung bases. There are small pleural effusions with dependent atelectasis. Liver: The contrast-enhanced liver is normal in size, contour, and attenuation. There is no intrahepatic biliary ductal dilatation. The hepatic veins and portal veins are patent. Gallbladder: Unremarkable. Spleen: Normal in size and attenuation. Pancreas: Unremarkable. Adrenal glands: Unremarkable. Kidneys: The contrast enhanced kidneys are normal in size and without hydronephrosis. The kidneys enhance symmetrically. Bilateral renal cysts measure up to 2.7 cm. An indeterminant 1.1 cm lesion arises in the lower pole of the left kidney on image #[id number]. Abdominal vasculature: The abdominal aorta is normal in course and caliber noting advanced atherosclerotic calcification. Bowel: There is no bowel obstruction. The appendix is well-visualized and normal. Peritoneum: There is no intraperitoneal free air or abdominal ascites. There is a small fat-containing umbilical hernia. Lymphadenopathy: None. Pelvic viscera: The prostate gland is enlarged and heterogeneous noting median lobe hypertrophy. The bladder wall appears thickened/trabeculated indicating chronic outlet obstruction. Skeletal structures: The skeletal structures are osteopenic. There is mild lumbosacral spondylosis. No lytic or blastic lesions are seen. IMPRESSION: 1. There are no acute infectious or inflammatory findings in the abdomen or pelvis. 2. Emphysema. 3. An indeterminate 1.1 cm lesion arising from the lower pole of left kidney does not meet criteria for simple cyst. This may represent a complex cyst, and a 3-6 month follow-up with a contrast-enhanced renal protocol CT or MRI is recommend for reassessment. 4. Small pleural effusions. 5. Additional findings as above. ACT 112: Negative or not required by law. Electronically signed by: Salas Urbina M.D. 04/23/2022 11:35 AM
[2022-04-23] MEDS: ENOXAPARIN INJ 40 MG/0.4 ML SYR SQ SCH (19:58)
[2022-04-23] MEDS: ASPIRIN 81 MG ECTAB PO SCH (20:01)
[2022-04-24 06:20] LABS: Basophils # (auto) 0.03 K/uL (0-0.2); Basophils % (auto) 0.7 %; Eosinophils # (auto) 0.16 K/uL (0-0.50); Eosinophils % (auto) 3.8 %; Hematocrit (blood only) 40.7 % (40.1-51.0); Hemoglobin 13.7 g/dl (14.0-18.0); Immature Granulocytes # (auto) 0.01 K/uL (0.00-0.02); Immature Granulocytes % (auto) 0.2 %; Lymphocytes # (auto) 1.57 K/uL (1.2-3.4); Lymphocytes % (auto) 37.2 %; Mean Corpuscular Hemoglobin 31.6 pg (25.0-34.0); Mean Corpuscular Hgb Conc 33.7 g/dL (32.0-36.0); Mean Corpuscular Volume 93.8 fL (80.0-100.0); Mean Platelet Volume 10.1 fL (9.4-12.4); Monocytes # (auto) 0.32 K/uL (0.24-0.82); Monocytes % (auto) 7.6 %; Neutrophils # (auto) 2.13 K/uL (1.4-6.5); Neutrophils % (auto) 50.5 %; Platelet Count 145 K/uL (130-400); RDW Coefficient of Variation 13.1 % (11.5-14.5); RDW Standard Deviation 45.4 fL (36.4-46.3); Red Blood Count 4.34 M/uL (4.63-6.08); White Blood Count 4.22 K/ul (4.8-10.8)
[2022-04-24] MEDS: LEVOTHYROXINE SODIUM 75 MCG TABLET PO SCH (06:33)
[2022-04-24] MEDS: CEFEPIME 2,000 MG in SYRINGE 0 ML IV SCH ×2 (06:33→15:38)
[2022-04-24 06:43] LABS: BUN Creatinine Ratio 18.3 (10-20); Calcium 8.9 mg/dl (8.5-10.1); Creatinine Clr Calc Pharmacy 85.6 ml/min; Est GFR (African American) 98.2 ml/min; Est GFR (Non-African American) 84.7 ml/min
[2022-04-24] MEDS: INSULIN ASPART PER UNIT SC SCH ×4 (08:10→22:38)
[2022-04-24] MEDS: lisinopril 5 MG TAB PO SCH (08:11)
[2022-04-24] MEDS: FINASTERIDE 5 MG TAB PO SCH (08:11)
[2022-04-24] MEDS: OSELTAMIVIR PHOSPHATE 75 MG CAP PO SCH ×2 (08:12→20:01)
[2022-04-24] MEDS: METOPROLOL SUCC 50MG EXT REL TAB PO SCH (08:12)
[2022-04-24] MEDS: TAMSULOSIN HCL 0.4 MG CAP PO SCH (08:13)
[2022-04-24] MEDS: ROSUVASTATIN CALCIUM 10 MG TAB PO SCH (08:13)
--- NOTE | 2022-04-24 11:40 | Hospitalist Progress Note ---
Date of Service April 24, 2022 Assessment & Plan (1) Bacteremia: Plan: Patient is 76-year-old male with PMH diet controlled DM II, HTN, dyslipidemia, BPH, urinary retention, hypothyroidism presented to ER for abnormal labs: Positive blood cultures. Patient was seen on 04/20/22 [facility] ER for fever, chills, weakness, had positive influenza A PCR. Returns to ER today as 06/01 blood cultures positive for gram-negative bacilli. 04/05/2022 had outpatient cystoscopy. Blood culture on positive for gram-negative bacilli Repeat blood culture no growth till date CT abdomen and pelvis did not show any sign of abscess/pyelonephritis. An indeterminant 1.1 cm lesion found in the lower pole of left kidney; will need 3 to 6-month follow-up. Plan; Discussed with microbiology lab regarding patient's blood culture. The identification of gram-negative bacilli has been difficult. The blood culture may need to be sent out for further identification. There is a chance that it could be identified tomorrow along with culture and sensitivities. -He is afebrile and repeat blood culture has been negative so far. If the blood culture is not able to be identified till tomorrow; will place him on oral antibiotic along with close follow-up with his primary care doctor. (2) Influenza A: Plan: Positive influenza A PCR on 04/20/2022 Has had 2 doses of Tamiflu Continue Tamiflu for total of 2 days Droplet precautions (3) Hypertension: Plan: Continue lisinopril, metoprolol succinate (4) Diabetes mellitus, type II: Plan: Diet controlled A1c: 5.9 on 01/05/2022 Patient takes homeopathic supplement Novolog sliding correction scale per protocol (5) BPH (benign prostatic hyperplasia): Plan: Continue tamsulosin, finasteride (6) Dyslipidemia: Plan: Continue rosuvastatin DVT Prophylaxis Lovenox SQ DNR/DNI as per discussion with pt Follows with Dr Mora in [place] for routine care Admission and Anticipated Discharge Date Admission Date: April 22, 2022 Subjective Patient seen and examined at bedside. Comfortable; not in any distress. No episode of fever overnight. Review of Systems Review of Systems: All systems reviewed & are unremarkable except as noted in Subjective Physical Exam Physical Exam: Constitutional: WD/WN, vitals as above, NAD, sitting up in bed, pleasant, conversing easily Respiratory: normal respiratory effort, lungs clear to auscultation, no wheeze, rales, rhonchi. Normal insp/exp effort, no accessory muscle use Cardiovascular: RRR, no murmur, no edema Vessels: no JVD or carotid bruit Chest: normal inspection of chest Abdomen: normal bowel sounds, soft, nontender, no hepatosplenomegaly Musculoskeletal: no cyanosis or clubbing, extremities motor strength 5/5 Skin: no rashes, warm and dry normal turgor Neurologic: PERRL, EOMI, accommodation nl, no face palsy, no dysarthria CN's II- XI intact bilaterally and moves all extremities Psychiatric: A+Ox3, euthymic affect Lymphatic: no cervical or axillary lymphadenopathy : deferred Results & Data Results & Data ([facility]) Vital Signs (Past 12 Hours) Vital Signs Temp Pulse Pulse Resp BP Pulse Ox O2 Del Method 04/24/22 08:20 36.8 C 59 L 19 148/75 H Room Air 04/24/22 07:40 58 L 04/24/22 02:52 36.4 C L 57 L 18 149/71 H 97 CPAP Laboratory Results Laboratory Results WBC 4.22 K/ul (4.8-10.8) L 04/24/22 06:12 RBC 4.34 M/uL (4.63-6.08) L 04/24/22 06:12 Hgb 13.7 g/dl (14.0-18.0) L 04/24/22 06:12 Hct 40.7 % (40.1-51.0) 04/24/22 06:12 MCV 93.8 fL (80.0-100.0) 04/24/22 06:12 MCH 31.6 pg (25.0-34.0) 04/24/22 06:12 MCHC 33.7 g/dL (32.0-36.0) 04/24/22 06:12 RDW Std Deviation 45.4 fL (36.4-46.3) 04/24/22 06:12 RDW Coeff of Daniel 13.1 % (11.5-14.5) 04/24/22 06:12 Plt Count 145 K/uL (130-400) 04/24/22 06:12 MPV 10.1 fL (9.4-12.4) 04/24/22 06:12 Immature Gran % (Auto) 0.2 % 04/24/22 06:12 Neut % (Auto) 50.5 % 04/24/22 06:12 Lymph % (Auto) 37.2 % 04/24/22 06:12 [place] % (Auto) 7.6 % 04/24/22 06:12 Eos % (Auto) 3.8 % 04/24/22 06:12 Baso % (Auto) 0.7 % 04/24/22 06:12 Neut # (Auto) 2.13 K/uL (1.4-6.5) 04/24/22 06:12 Lymph # (Auto) 1.57 K/uL (1.2-3.4) 04/24/22 06:12 [place] # (Auto) 0.32 K/uL (0.24-0.82) 04/24/22 06:12 Eos # (Auto) 0.16 K/uL (0-0.50) 04/24/22 06:12 Baso # (Auto) 0.03 K/uL (0-0.2) 04/24/22 06:12 Immature Gran # (Auto) 0.01 K/uL (0.00-0.02) 04/24/22 06:12 Sodium 137 mmol/L (136-145) 04/24/22 06:12 Potassium 4.0 mmol/L (3.5-5.1) 04/24/22 06:12 Chloride 105 mmol/L (98-107) 04/24/22 06:12 Carbon Dioxide 25 mmol/L (21-32) 04/24/22 06:12 Anion Gap 7 (3-11) 04/24/22 06:12 BUN 15 mg/dl (6-23) 04/24/22 06:12 Creatinine 0.82 mg/dl (0.6-1.4) 04/24/22 06:12 Est Cr Clr Drug Dosing 85.6 ml/min 04/24/22 06:12 Est GFR ( Amer) 98.2 ml/min 04/24/22 06:12 Est GFR (Non-Af Amer) 84.7 ml/min 04/24/22 06:12 BUN/Creatinine Ratio 18.3 (10-20) 04/24/22 06:12 Glucose 99 mg/dl (70-99(Fasting)) 04/24/22 06:12 POC Glucose 106 mg/dl (70-99) H 04/24/22 07:47 Lactate 0.8 mmol/L (0.4-2.0) 04/22/22 15:11 Calcium 8.9 mg/dl (8.5-10.1) 04/24/22 06:12 Magnesium 2.2 mg/dl (1.7-2.4) 04/22/22 15:11 Total Bilirubin 0.5 mg/dl (0.2-1.0) 04/22/22 15:11 Direct Bilirubin 0.1 mg/dl (0-0.2) 04/22/22 15:11 AST 26 U/L (13-39) 04/22/22 15:11 ALT 17 U/L (7-52) 04/22/22 15:11 Alkaline Phosphatase 44 U/L (34-104) 04/22/22 15:11 Troponin I High Sens 11.2 pg/ml (0-20) 04/22/22 15:11 Total Protein 7.4 gm/dl (6.0-8.3) 04/22/22 15:11 Albumin 4.3 gm/dl (3.4-5.0) 04/22/22 15:11 Procalcitonin < 0.05 ng/ml (0-0.5) 04/22/22 15:11 Urine Color Yellow 04/22/22 15:25 Urine Appearance Clear (Clear) 04/22/22 15:25 Urine pH 5.0 (4.5-7.5) 04/22/22 15:25 Ur Specific [place] 1.018 (1.000-1.030) 04/22/22 15:25 Urine Protein Negative (Negative) 04/22/22 15:25 Urine Glucose (UA) Negative (Negative) 04/22/22 15:25 Urine Ketones Negative (Negative) 04/22/22 15:25 Urine Blood Negative (Negative) 04/22/22 15:25 Urine Nitrite Negative (Negative) 04/22/22 15:25 Urine Bilirubin Negative (Negative) 04/22/22 15:25 Urine Urobilinogen Negative (Negative) 04/22/22 15:25 Ur Leukocyte Esterase Negative (Negative) 04/22/22 15:25 SARS-CoV-2, RNA, NAAT NEGATIVE (NEGATIVE) 04/22/22 15:24 Impressions Chest X-Ray 04/22/22 14:23 XR chest 1V portable CLINICAL HISTORY: Sepsis TECHNIQUE: Single frontal radiograph of the chest was obtained. Comparison: Comparison is made to chest radiograph 04/20/2022 FINDINGS: No lines and tubes are seen. The cardiomediastinal silhouette is normal. The lungs are clear. No evidence of pleural effusion or pneumothorax. IMPRESSION: No acute chest disease. ACT 112: Negative or not required by law. Electronically signed by: Reece Mistry M.D. 04/22/2022 2:42 PM Abdomen/Pelvis CT 04/23/22 09:42 CT SCAN OF THE ABDOMEN AND PELVIS WITH IV CONTRAST CLINICAL HISTORY: Escherichia coli bacteremia. COMPARISON STUDY: No priors. TECHNIQUE: Following the IV administration of 85 cc of Optiray 350, CT scan of the abdomen and pelvis is performed from the lung bases to the proximal femora. Images are reviewed in the axial, sagittal, and coronal planes. IV contrast was administered without complication. A dose lowering technique was utilized adhering to the principles of ALARA. CT DOSE: 1126.70 mGy.cm FINDINGS: Lung bases: The heart is normal in size and without pericardial effusion. There are coronary artery calcifications. Emphysematous changes noted at the lung bases. There are small pleural effusions with dependent atelectasis. Liver: The contrast-enhanced liver is normal in size, contour, and attenuation. There is no intrahepatic biliary ductal dilatation. The hepatic veins and portal veins are patent. Gallbladder: Unremarkable. Spleen: Normal in size and attenuation. Pancreas: Unremarkable. Adrenal glands: Unremarkable. Kidneys: The contrast enhanced kidneys are normal in size and without hydronephrosis. The kidneys enhance symmetrically. Bilateral renal cysts measure up to 2.7 cm. An indeterminant 1.1 cm lesion arises in the lower pole of the left kidney on image #[id number]. Abdominal vasculature: The abdominal aorta is normal in course and caliber noting advanced atherosclerotic calcification. Bowel: There is no bowel obstruction. The appendix is well-visualized and normal. Peritoneum: There is no intraperitoneal free air or abdominal ascites. There is a small fat-containing umbilical hernia. Lymphadenopathy: None. Pelvic viscera: The prostate gland is enlarged and heterogeneous noting median lobe hypertrophy. The bladder wall appears thickened/trabeculated indicating chronic outlet obstruction. Skeletal structures: The skeletal structures are osteopenic. There is mild lumbosacral spondylosis. No lytic or blastic lesions are seen. IMPRESSION: 1. There are no acute infectious or inflammatory findings in the abdomen or pelvis. 2. Emphysema. 3. An indeterminate 1.1 cm lesion arising from the lower pole of left kidney does not meet criteria for simple cyst. This may represent a complex cyst, and a 3-6 month follow-up with a contrast-enhanced renal protocol CT or MRI is recommend for reassessment. 4. Small pleural effusions. 5. Additional findings as above. ACT 112: Negative or not required by law. Electronically signed by: Salas Urbina M.D. 04/23/2022 11:35 AM
[2022-04-24] MEDS: ASPIRIN 81 MG ECTAB PO SCH (20:01)
[2022-04-24] MEDS: ENOXAPARIN INJ 40 MG/0.4 ML SYR SQ SCH (20:01)
[2022-04-25] MEDS: LEVOTHYROXINE SODIUM 75 MCG TABLET PO SCH (06:04)
[2022-04-25 06:43] LABS: Basophils # (auto) 0.04 K/uL (0-0.2); Basophils % (auto) 0.9 %; Eosinophils # (auto) 0.16 K/uL (0-0.50); Eosinophils % (auto) 3.5 %; Hematocrit (blood only) 43.6 % (40.1-51.0); Hemoglobin 14.5 g/dl (14.0-18.0); Immature Granulocytes # (auto) 0.01 K/uL (0.00-0.02); Immature Granulocytes % (auto) 0.2 %; Lymphocytes # (auto) 1.68 K/uL (1.2-3.4); Lymphocytes % (auto) 37.2 %; Mean Corpuscular Hemoglobin 31.1 pg (25.0-34.0); Mean Corpuscular Hgb Conc 33.3 g/dL (32.0-36.0); Mean Corpuscular Volume 93.6 fL (80.0-100.0); Mean Platelet Volume 10.7 fL (9.4-12.4); Monocytes # (auto) 0.34 K/uL (0.24-0.82); Monocytes % (auto) 7.5 %; Neutrophils # (auto) 2.29 K/uL (1.4-6.5); Neutrophils % (auto) 50.7 %; Platelet Count 154 K/uL (130-400); RDW Coefficient of Variation 12.9 % (11.5-14.5); RDW Standard Deviation 44.3 fL (36.4-46.3); Red Blood Count 4.66 M/uL (4.63-6.08); White Blood Count 4.52 K/ul (4.8-10.8)
[2022-04-25] MEDS: INSULIN ASPART PER UNIT SC SCH (08:39)
[2022-04-25] MEDS: lisinopril 5 MG TAB PO SCH (08:40)
[2022-04-25] MEDS: FINASTERIDE 5 MG TAB PO SCH (08:40)
[2022-04-25] MEDS: ROSUVASTATIN CALCIUM 10 MG TAB PO SCH (08:40)
[2022-04-25] MEDS: OSELTAMIVIR PHOSPHATE 75 MG CAP PO SCH (08:40)
[2022-04-25] MEDS: TAMSULOSIN HCL 0.4 MG CAP PO SCH (08:40)
[2022-04-25] MEDS: METOPROLOL SUCC 50MG EXT REL TAB PO SCH (09:22)
--- NOTE | 2022-04-25 15:24 | Discharge Summary ---
Date of Service April 25, 2022 Admission HPI Per Admitting Provider Patient is 76-year-old male with PMH diet controlled DM II, HTN, dyslipidemia, BPH, urinary retention, hypothyroidism presented to ER for abnormal labs: Positive blood cultures. Patient was seen on 04/20/22 [facility] ER for fever, chills, weakness, had positive influenza A PCR. Was given IVF, cefepime, Tamiflu and discharged home. Returns to ER today as 1/4 blood cultures positive for gram-negative bacilli. Patient states had fever 2 days ago, none since. Mild cough productive clear sputum. Denies chest pain or SOB. Took 2nd dose of Tamiflu today as pharmacy was closed yesterday and he was unable to fill the pr escription. Outpatient cystoscopy on 04/05/22 and was given Bactrim perioperatively. Patient denies dysuria, urinary frequency, hematuria, urinary retention. Denies diaphoresis, N/V/D/C, HOFFMAN, dizziness, syncope, vision changes, neck pain, palpitations, sore throat, choking, otalgia, rhinorrhea, abdominal pain, paresthesias, extremity weakness, extremity edema, rashes. Admission Exam Per Admitting Provider General: no distress, obese Head: normocephalic, atraumatic Eyes: conjunctiva non-injected, anicteric ENT: normal inspection external ears, nose, mucous membranes moist Neck: supple, trachea midline Lungs: clear, no respiratory distress, no wheezing/rhonchi/rales CV: RRR, no murmur, trace pretibial edema Abd: normal BS, soft, non-tender Ext: no cyanosis, no calf tenderness Neuro: A&O x 3, no focal deficits noted, normal affect Skin: warm, dry Principal Diagnosis Gram-negative bacteremia Influenza A Discharge Exam Constitutional: WD/WN, vitals as above, NAD, sitting up in bed, pleasant, conversing easily Respiratory: normal respiratory effort, lungs clear to auscultation, no wheeze, rales, rhonchi. Normal insp/exp effort, no accessory muscle use Cardiovascular: RRR, no murmur, no edema Vessels: no JVD or carotid bruit Chest: normal inspection of chest Abdomen: normal bowel sounds, soft, nontender, no hepatosplenomegaly Musculoskeletal: no cyanosis or clubbing, extremities motor strength 5/5 Skin: no rashes, warm and dry normal turgor Neurologic: PERRL, EOMI, accommodation nl, no face palsy, no dysarthria CN's II- XI intact bilaterally and moves all extremities Psychiatric: A+Ox3, euthymic affect Lymphatic: no cervical or axillary lymphadenopathy : deferred Discharge Data Allergies Allergy/AdvReac Type Severity Reaction Status Date / Time No Known Allergies Allergy Verified 04/20/22 21:20 Consultations 04/22/22 15:33 ED Decision to Admit Stat Ordered Studies 04/23/22 09:42 CT abd pelvis IV con only Routine Hospital Course (1) Bacteremia: Patient is 76-year-old male with PMH diet controlled DM II, HTN, dyslipidemia, BPH, urinary retention, hypothyroidism presented to ER for abnormal labs: Positive blood cultures. Patient was seen on 04/20/22 [facility] ER for fever, chills, weakness, had positive influenza A PCR. Returns to ER today as 06/01 blood cultures positive for gram-negative bacilli. 04/05/2022 had outpatient cystoscopy. Blood culture on positive for gram-negative bacilli Repeat blood culture no growth till date CT abdomen and pelvis did not show any sign of abscess/pyelonephritis. An indeterminant 1.1 cm lesion found in the lower pole of left kidney; will need 3 to 6-month follow-up. Plan; Discussed with microbiology lab regarding patient's blood culture on the day of the discharge. The identification of gram-negative bacilli has been difficult. The blood culture needed to be sent out for further identification to the reference lab. His repeat blood culture is negative so far. Patient is afebrile throughout the hospitalization. patient was given 11 days of ciprofloxacin to complete 14-day course of antibiotic. Follow-up with his primary care was also given. He was also asked to follow-up with urology given the findings in the CT abdomen/pelvis. He verbalized understanding. (2) Influenza A: Positive influenza A PCR on 04/20/2022 Will complete 5-day course of Tamiflu at home. Total Time Total Time Spent Total Time Spent (In Minutes): 35 Total Time Includes: Examination of the Patient, Discharge Planning, Medication Reconciliation, Communication With Other Providers and Other Discharge Plan Discharge Items Patient Disposition: Home - Self-Care Reason For Visit: BACTEREMIA Discharge Diagnosis: Gram-negative bacteremia Influenza A Activity: Resume your previous activity Non-emergency contact: Primary Care Provider Call non-emergency contact if: you have any medication questions and your symptoms worsen Follow-up/Referrals: Sachin Junior DO [Primary Care Provider] - 05/02/22 10:00 am (Please note that this appointment is at the [facility] office. ) Diet: Regular Addtl Attending Provider Instructions: Your blood culture from 04/20 showed gram-negative bacteria. It is being sent to a reference lab for further identification. However, repeat blood culture has not shown any growth. You are prescribed ciprofloxacin 500 mg twice daily for 11 more days. Please finish your course of Tamiflu for influenza A. Please follow-up with your primary care doctor later this week. The CT abdomen showed indeterminate 1.1 cm lesion arising from the lower pole of left kidney does not meet criteria for simple cyst. This may represent a complex cyst, and a 3-6 month follow-up with a contrast-enhanced renal protocol CT or MRI is recommend for reassessment. Please discuss this finding with your primary care doctor and your urologist. Pending Studies at Discharge: No Stand-Alone Forms: My [facility] [employer], Smoking Cessation Medications and DC Order Prescriptions: New ciprofloxacin HCl [Cipro] 500 mg tablet 500 mg PO BID 11 Days Qty: 22 0RF Continued ascorbic acid (vitamin C) [Vitamin C] 1,000 mg Tablet 1 g PO DAILY acetaminophen [Tylenol Extra Strength] 500 mg Tablet 1,000 mg PO Q6H PRN (Reason: Fever Or Pain) aspirin 81 mg Tablet,Delayed Release (Dr/Ec) 81 mg PO HS metoprolol succinate 50 mg tablet extended release 24 hr 50 mg PO DAILY levothyroxine 75 mcg tablet 75 mcg PO QAM tamsulosin 0.4 mg capsule 0.8 mg PO DAILY lisinopril 5 mg tablet 5 mg PO DAILY finasteride 5 mg tablet 5 mg PO DAILY rosuvastatin 10 mg tablet 10 mg PO DAILY oseltamivir [Tamiflu] 75 mg capsule 75 mg PO BID 5 Days Qty: 10 0RF Discharge Orders: Discharge Order (Routine); Ordered 04/25/22 Ordered By: Amanuel Charles Admission Data Admit Date/Time: 04/22/22 15:12 Attending Provider: Amanuel Charles Admit Provider: Vamsi Meza Primary Care Provider: Sachin Junior Other Providers: Vamsi Meza Other Interventions: Discharge Summary Assessment (RN) Last Done: 04/25/22 10:20
--- NOTE | 2022-04-26 11:19 | Communication Note ---
Date of Service: April 26, 2022 Received a message that one of pt's blood cultures from 04/20 is now growing a second bacteria - gram positive bacilli. Additional testing and identification is still in process. I called pt to follow-up since discharge yesterday. He reports he is feeling well since going home. No fevers, chills. Taking the prescribed ciprofloxacin and tolerating without difficulty. Spoke with micro who reported additional testing and identification is still pending for the blood culture. Once result is finalized, will need to send a copy of the result to pt's PCP. Maria Elena Humphrey PA-C
== END 2022-04-25 11:23 | disposition home or self-care (01) | DRG 872 ==
LOC: ED 13:42 → 2W 15:12 → SUATTDRO 15:12 → 2W 17:20